=== PATIENT | female | born 1950 | race Hispanic/Latino ===

== ENCOUNTER → 2019-05-20 | Outpatient (CLI) | payer BC, MEDICARE ==
[~2019-05-20] MED LIST: GADODIAMIDE 10 MMOL/20 ML VIAL IV ONE
== END | disposition home or self-care (01) ==
LOC: RAH 10:40
PROVIDERS: ATTEND Physician Assistant Medical
DX: M47.816 Spondylosis without myelopathy or radiculopathy, lumbar region (principal); M48.061 Spinal stenosis, lumbar region without neurogenic claudication; M25.552 Pain in left hip
CPT/HCPCS: 72158; A9579

== ENCOUNTER 2019-07-11 12:54 | Emergency (ER) | payer MEDICARE ==
[2019-07-11] MEDS ORDERED: ACETAMINOPHEN EXTRA STRENGTH 500 MG TABLET ONE (13:17)
== END 2019-07-11 14:08 | disposition home or self-care (01) ==
LOC: EDH 12:54
DX: S52.92XA Unspecified fracture of left forearm, initial encounter for closed fracture (principal); W18.39XA Other fall on same level, initial encounter; Y93.89 Activity, other specified; Y92.89 Other specified places as the place of occurrence of the external cause; Y99.8 Other external cause status
CPT/HCPCS: 29125; 73090; 73130

== ENCOUNTER → 2024-07-06 | Emergency (ER) | payer MEDICARE ==
[~2024-07-06] VITALS: Ht 157.5 cm; Wt 68.0 kg
[~2024-07-06] MED LIST changes: -GADODIAMIDE 10 MMOL/20 ML VIAL IV ONE; +teTANUS/diphthERIA TOXOID [ADULT] 0.5 ML VIAL IM ONE
--- NOTE | 2024-07-06 12:12 | ERN ---
ED Note History of Present Illness Stated Complaint: REQUESTING XRAYS Time Seen by MD: 11:55 Dictation: PATIENT IS A 73-YEAR-OLD FEMALE HERE WITH COMPLAINTS OF A SAME LEVEL FALL WHILE SHE WAS LEANING OVER TO PET A CT TWO DAYS AGO. SHE STATES SHE LEANED OVER TO FOUR AND FELL HIT THE FACE WITH AN ABRASION TO HER LOWER LIP AND CHIN AREA. SHE ALSO HAS A ANTERIOR CHEST WALL TENDERNESS WITHOUT BRUISING NORMAL NO SHORTNESS A BREATH. FINALLY SHE IS COMPLAINING OF RIGHT ANTERIOR KNEE AND LEFT HAND PAIN SWELLING. SHE DENIES BLOOD THINNERS, NO LOC NO MIDLINE SPINE PAIN DID NOT HIT HER HEAD AND NO TRAUMA ALERT CRITERIA. Allergies: Uncoded Allergies: LEVAQUIN,ERYTHROMYCIN,TAPE,CETAFIL, (Allergy, RASH,SORENESS, 06/30/12) SULFA (Allergy, RASH, 06/30/12) Past Medical History History: Not Applicable RN Note Reviewed/Agreed w/PFSH: Yes Review of System Dictation CONSTITUTIONAL: Negative except for HPI HEAD/FACE: Negative except for HPI EENT: Negative except for HPI RESPIRATORY: Negative except for HPI anterior chest pain GASTROINTESTINAL/ABDOMINAL: Negative except for HPI GENITOURINARY: Negative except for HPI MUSCULOSKELETAL: Negative except for HPI left hand/right knee pain INTEGUMENTARY: Negative except for HPI NEUROLOGICAL/PSYCH: Negative except for HPI HEMATOLOGIC/LYMPHATIC: Negative except for HPI All Systems Negative, Except as noted above. 13 point review of systems assessed and all negative except for above. Initial Vital Sign VS Vital Signs Date Time Temp Pulse Resp B/P (MAP) Pulse Ox O2 Delivery O2 Flow Rate FiO2 07/06/24 12:12 97.9 74 16 149/66 93 Room Air 0 07/06/24 15:26 21 Physical Exam Dictation Vital Signs reviewed General Appearance: Alert, oriented x 3, no acute distress, well developed, n ourished. Head and Face: non-traumatic. Eyes: PERRL, pink conjunctivas, eyelid no trauma, anterior chamber with arcus senilis. Ears: Pinnas intact and no signs of trauma or erythema ear canals clear and no discharge TM no erythema Nose: No discharge, no bleeding. Oropharynx: Mouth normal, tongue pink, pharynx clear,no erythema, tonsils no exudates, no abscesses noted, mucous membrane moist Neck: Supple, non-tender, no thyromegaly, no masses, no JVD, no bruits Breast:Deferred Chest:No tenderness, no crepitus, no paradoxical movement, no retractions Lungs:Clear, well-ventilated, symmetric, no rales, no wheezing, no rhonchi, no stridor, good breath sounds bilaterally Heart: Regular rate, regular rhythm, no murmur, no gallops Vascular: no peripheral edema, Abdomen: Soft, positive bowel sounds, nondistended, no guarding, nontender, no rebound, no masses no hepatomegaly, no splenomegaly, no Urena's sign, no hernias. Rectal: Deferred Genital: Deferred Neurological: Normal speech, motor function intact, sensory function intact Musculoskeletal: Neck nontender, full range of motion, back nontender, full range of motion, Extremities: Left hand pain/right knee pain decreased range of motion secondary to pain Skin: Color pink, dry, no turgor, no rash, no lacerations, no abrasions, no contusions. Lymphatic: Deferred Results (Laboratory/Radiology) Laboratory/Radiology Clinical Information: ANTERIOR CHEST WALL PAIN TENDERNESS STATUS POST FALL TWO DAYS Comparison: None Findings: The lungs are clear of infiltrates. The heart is enlarged. Bony and soft tissue structures of the chest wall are unremarkable. IMPRESSION: Cardiomegaly. Clear lungs. Exam Type: HAND 3+VWS LT History: LEFT 1ST 2ND AND 3RD METACARPAL SWELLING TENDERNESS STATUS POST FALL Comparison: none Findings: The examination shows degenerative changes with narrowing of the interphalangeal joint spaces, with subchondral sclerosis. No fractures or dislocations are seen. There are no radiopaque foreign bodies. There are no areas of bone destruction. There is osteopenia. Impression: Osteoarthritis of the hand. Exam Type: KNEE 3VWS RT Clinical Information: RIGHT ANTERIOR KNEE PAIN SWELLING AND ECCHYMOSIS STATUS POST FALL TWO DAYS Comparison: None Findings: There are degenerative changes with narrowing of the medial femorotibial joint space, with subchondral sclerosis. No acute fractures are seen. The soft tissues appear normal. Impression: Degenerative changes medial compartment. Labs Reviewed?: Yes ED Course ED Course Orders Procedure Category Date Status Time Hand 3+Vws Lt RAD 07/06/24 Resulted 12:09 Knee 3vws Rt RAD 07/06/24 Resulted 12:09 Chest 1vw RAD 07/06/24 Resulted 12:09 Acetaminophen 500mg PHA 07/06/24 Complete Tab (Tylenol 500mg T 12:30 Tetanus,Diphtheria PHA 07/06/24 Complete Tox [Adult] (Diphther 12:30 Current Medications Medications (Trade) Dose Ordered Sig/Shaan Route PRN Reason Start Time Stop Time Status Last Admin Dose Admin Acetaminophen (TYLenol 500MG TAB) 1,000 mg ONCE ONCE PO 07/06/24 12:30 07/06/24 12:31 DC Tetanus/ Diphtheria Toxoids Adsorbed (DiphthERIA-teTANUS TOXOID [ADULT]/ DECAVAC) 0.5 ml ONCE ONCE IM 07/06/24 12:30 07/06/24 12:31 DC Vital Signs Date Time Temp Pulse Resp B/P (MAP) Pulse Ox O2 Delivery O2 Flow Rate FiO2 07/06/24 15:26 97.9 74 16 149/66 93 Room Air* 0 21 07/06/24 12:12 97.9 74 16 149/66 93 Room Air 0 Medical Decision Making [facility] Sixteen 40 patient left against medical advice. Did not sign AMA form DX & DISP Disposition: AMA Departure Impression: Primary Impression: Contusion, chest wall Additional Impressions: Contusion of left hand, initial encounter, Contusion of right knee, initial encounter, Fall Condition: Stable Referrals: BRAULIO PASTRANA (PCP) Time of Disposition: 15:41 I have reviewed the case, and I agree with, Diagnosis and Plan I performed the substantive portion of the visit. I have reviewed and personally made and approve the management plan that is documented in the notes by myself or the JINNY. I acknowledge full responsibility for the patient's management plan. AZAEL CABRERA NP Jul 06, 2024 12:12 WILMAR GRANDE MD Jul 06, 2024 18:23
[2024-07-06] MEDS: acetaMINOPHEN 500 MG TABLET PO ONE (12:30)
--- NOTE | 2024-07-06 15:24 | HMCIMG ---
Exam Type: KNEE 3VWS RT Clinical Information: RIGHT ANTERIOR KNEE PAIN SWELLING AND ECCHYMOSIS STATUS POST FALL TWO DAYS Comparison: None Findings: There are degenerative changes with narrowing of the medial femorotibial joint space, with subchondral sclerosis. No acute fractures are seen. The soft tissues appear normal. Impression: Degenerative changes medial compartment.
--- NOTE | 2024-07-06 15:25 | HMCIMG ---
Exam Type: HAND 3+VWS LT History: LEFT 1ST 2ND AND 3RD METACARPAL SWELLING TENDERNESS STATUS POST FALL Comparison: none Findings: The examination shows degenerative changes with narrowing of the interphalangeal joint spaces, with subchondral sclerosis. No fractures or dislocations are seen. There are no radiopaque foreign bodies. There are no areas of bone destruction. There is osteopenia. Impression: Osteoarthritis of the hand.
[2024-07-06 15:26] VITALS: BP 149/66; PULSE 74; RESP 16; TEMP 97.9; O2SAT 93
--- NOTE | 2024-07-06 15:27 | HMCIMG ---
Exam Type: CHEST 1VW Clinical Information: ANTERIOR CHEST WALL PAIN TENDERNESS STATUS POST FALL TWO DAYS Comparison: None Findings: The lungs are clear of infiltrates. The heart is enlarged. Bony and soft tissue structures of the chest wall are unremarkable. IMPRESSION: Cardiomegaly. Clear lungs.
== END ==
LOC: EDH 11:52
DX: S60.222A Contusion of left hand, initial encounter (principal); S80.01XA Contusion of right knee, initial encounter; S20.219A Contusion of unspecified front wall of thorax, initial encounter; Z88.1 Allergy status to other antibiotic agents; Z88.2 Allergy status to sulfonamides; W18.39XA Other fall on same level, initial encounter; Y93.89 Activity, other specified; Y92.89 Other specified places as the place of occurrence of the external cause; Y99.8 Other external cause status
CPT/HCPCS: 71045; 73130; 73562; 99284